=== PATIENT | female | born 1945 | race Caucasian/White ===

== ENCOUNTER 2018-03-30 04:02 | Emergency (ER) | payer MEDICARE, OTHER ==
[2018-03-30] MEDS ORDERED: Silver Sulfadiazine 1% Cream 50 GM JAR ONE (04:29)
== END 2018-03-30 04:35 | disposition home or self-care (01) ==
LOC: SCSER 04:02
DX: N89.8 Other specified noninflammatory disorders of vagina (principal); E03.9 Hypothyroidism, unspecified; Z79.899 Other long term (current) drug therapy
CPT/HCPCS: 36416; 99283